=== PATIENT | female | born 1965 | race Caucasian/White ===

== ENCOUNTER 2021-03-16 15:00 | Emergency (ER) | payer MEDICARE, MEDICAID ==
[~2021-03-16] VITALS: Ht 165.1 cm; Wt 85.0 kg
[2021-03-16] MEDS ORDERED: MORPHINE SULFATE 4 MG/ML CPJ (NOT FOR IM USE) IV STA (15:31)
[2021-03-16] MEDS ORDERED: ONDANSETRON HCL 4MG/2ML INJ IV STA (15:31)
[2021-03-16] MEDS ORDERED: SODIUM CHLORIDE 0.9% 1,000 ML IV ONE (15:45)
[2021-03-16 16:57] LABS: BASOPHILS % 1.1 % (0.0-2.0); EOSINOPHILS % 4.1 % (0.0-5.0); HEMATOCRIT. 36.5 % (36.0-48.0); HEMOGLOBIN. 11.6 g/dL (12.0-16.0); MEAN CORPUSCULAR HEMOGLOBIN 24.2 pg (28.0-32.0); MEAN CORPUSCULAR VOLUME 76.3 fL (81.0-99.0); MEAN PLATELET VOLUME 9.8 fl (7.4-10.4); MONOCYTES % 6.9 % (2.0-8.0); NEUTROPHILS % 62.9 % (40.0-76.0); PLATELET 145 x1000/uL (130-400); RED BLOOD CELL COUNT 4.78 mill/uL (4.2-5.4); RED CELL DISTRIBUTION WIDTH 18.5 % (11.6-14.6)
[2021-03-16 17:05] LABS: CHLORIDE 109 mEq/L (98-107)
[2021-03-16 17:06] LABS: INR 1.1; PARTIAL THROMBOPLASTIN TIME 26.7 sec (23.4-31.0); PROTHROMBIN TIME 11.6 sec (9.6-11.0)
[2021-03-16 19:43] LABS: CLARITY URINE CLEAR (CLEAR); COLOR URINE YELLOW (YELLOW); KETONES URINE NEGATIVE (NEGATIVE); LEUKOCYTE ESTERASE URINE TRACE (NEGATIVE); NITRITE URINE POSITIVE (NEGATIVE); OCCULT BLOOD URINE NEGATIVE (NEGATIVE); PROTEIN URINE NEGATIVE (NEGATIVE); SPECIFIC GRAVITY URINE 1.037 (1.005-1.030)
[2021-03-16] MEDS ORDERED: CIPR500T5 MT (19:57)
[2021-03-16 20:00] VITALS: BP 128/78
== END 2021-03-16 20:24 | disposition home or self-care (01) ==
LOC: ER 15:00
DX: R10.84 Generalized abdominal pain (principal); N39.0 Urinary tract infection, site not specified; Z85.528 Personal history of other malignant neoplasm of kidney; Z90.5 Acquired absence of kidney; Z90.710 Acquired absence of both cervix and uterus; Z90.49 Acquired absence of other specified parts of digestive tract; Z86.19 Personal history of other infectious and parasitic diseases
CPT/HCPCS: 36415; 71045; 74176; 80053; 81003; 83690; 84484; 85025; 85610; 85730; 87077; 87086; 87186; 93005; 96361; 96374; 96375; 99285; J2270; J2405; J7030

== ENCOUNTER 2021-10-14 13:52 | Inpatient (IN) | payer MEDICARE, MEDICAID ==
[~2021-10-14] VITALS: Ht 167.6 cm; Wt 77.7 kg
[~2021-10-14 13:52] MED LIST: CIPR500T5 MT
[2021-10-14] MEDS ORDERED: SODIUM CHLORIDE 0.9% 1,000 ML IV ONE (14:30)
[2021-10-14] MEDS ORDERED: ONDANSETRON HCL 4MG/2ML INJ IV ONE (14:45)
[2021-10-14] MEDS ORDERED: MIDAZOLAM HCL 2 MG/2 ML VIAL IV ONE (14:45)
[2021-10-14 14:46] LABS: BASOPHILS % 0.9 % (0.0-2.0); EOSINOPHILS % 5.3 % (0.0-5.0); HEMOGLOBIN. 15.5 g/dL (12.0-16.0); LYMPHOCYTES % 34.6 % (20.0-50.0); MEAN CORPUSCULAR HEMOGLOBIN 33.9 pg (28.0-32.0); MEAN CORPUSCULAR VOLUME 98.2 fL (81.0-99.0); MEAN PLATELET VOLUME 10.4 fl (7.4-10.4); MONOCYTES % 10.5 % (2.0-8.0); NEUTROPHILS % 48.7 % (40.0-76.0); PLATELET 112 x1000/uL (130-400); RED BLOOD CELL COUNT 4.58 mill/uL (4.2-5.4)
[2021-10-14 14:52] LABS: CHLORIDE 107 mEq/L (98-107)
[2021-10-14 14:56] LABS: INR 1.2; PARTIAL THROMBOPLASTIN TIME 29.7 sec (23.4-31.0); PROTHROMBIN TIME 12.4 sec (9.6-11.0)
[2021-10-14 15:04] LABS: ETHANOL BLOOD < 10 mg/dL
[2021-10-14] MEDS ORDERED: LACTULOSE 20G/30ML UDC NG ONE (15:30)
[2021-10-14] MEDS ORDERED: LACTULOSE 300 ML in WATER FOR IRRIGATION,STERILE 700 ML IR ONE (16:00)
[2021-10-14 22:00] VITALS: BP_SYST 142; BP_DIAS 70; BP_DIAS 74
[2021-10-14] MEDS ORDERED: ONDANSETRON HCL 4MG/2ML INJ IV PRN (22:00)
[2021-10-14] MEDS ORDERED: CLONIDINE 0.1MG TABLET NG PRN (22:00)
[2021-10-14] MEDS ORDERED: DEXT 5%/0.45% NACL 1000ML 1,000 ML IV SCH (22:00)
[2021-10-14] MEDS ORDERED: DEXTROSE 50% WATER 50ML SYRINGE IV PRN (22:00)
[2021-10-14] MEDS ORDERED: ACETAMINOPHEN 650MG/20.3ML UDC GT PRN ×2 (22:00)
[2021-10-14] MEDS: LACTULOSE 20G/30ML UDC NG SCH (23:28)
[2021-10-14] MEDS: INSULIN GLARGINE 100 UNITS/ML SUBCUT SCH (23:30)
[2021-10-14] MEDS: BLOOD SUGAR DIAGNOSTIC STRIP TEST SCH (23:32)
[2021-10-15] VITALS (8 sets, daily range): BP systolic 123–156; BP diastolic 68–80
[2021-10-15] MEDS: LACTULOSE 20G/30ML UDC NG SCH ×2 (04:15→09:42)
[2021-10-15] MEDS: BLOOD SUGAR DIAGNOSTIC STRIP TEST SCH ×3 (05:28→21:00)
[2021-10-15] MEDS: INSULIN LISPRO 100 UNITS/ML SUBCUT SCH ×3 (05:32→23:48)
[2021-10-15 09:40] LABS: BASOPHILS % 0.7 % (0.0-2.0); HEMATOCRIT. 43.1 % (36.0-48.0); LYMPHOCYTES % 16.5 % (20.0-50.0); MEAN CORPUSCULAR HEMOGLOBIN 34.4 pg (28.0-32.0); MEAN CORPUSCULAR VOLUME 98.7 fL (81.0-99.0); MEAN PLATELET VOLUME 10.5 fl (7.4-10.4); MONOCYTES % 7.6 % (2.0-8.0); NEUTROPHILS % 74.2 % (40.0-76.0); PLATELET 107 x1000/uL (130-400); RED BLOOD CELL COUNT 4.37 mill/uL (4.2-5.4); RED CELL DISTRIBUTION WIDTH 15.2 % (11.6-14.6)
[2021-10-15] MEDS: PANTOPRAZOLE SODIUM 40 MG/VIAL IV SCH (09:42)
[2021-10-15] MEDS: INSULIN GLARGINE 100 UNITS/ML SUBCUT SCH ×2 (09:47→23:47)
[2021-10-15 10:24] LABS: CHLORIDE 113 mEq/L (98-107)
[2021-10-15 10:29] LABS: PHOSPHORUS 2.7 mg/dL (2.5-4.9)
[2021-10-15] MEDS ORDERED: BLOOD SUGAR DIAGNOSTIC STRIP TEST SCH (15:15)
[2021-10-15] MEDS ORDERED: INSULIN LISPRO 100 UNITS/ML SUBCUT SCH (17:30)
[2021-10-15] MEDS: LACTULOSE 20G/30ML UDC PO SCH ×2 (17:42→23:49)
[2021-10-16] VITALS (8 sets, daily range): BP systolic 125–157; BP diastolic 63–84
[2021-10-16] MEDS: LACTULOSE 20G/30ML UDC PO SCH ×2 (06:00→12:26)
[2021-10-16] MEDS: BLOOD SUGAR DIAGNOSTIC STRIP TEST SCH ×4 (07:30→21:22)
[2021-10-16] MEDS: INSULIN LISPRO 100 UNITS/ML SUBCUT SCH ×4 (08:00→21:24)
[2021-10-16] MEDS: PANTOPRAZOLE SODIUM 40 MG/VIAL IV SCH (08:38)
[2021-10-16] MEDS ORDERED: LACTULOSE 20G/30ML UDC PO SCH (12:45)
[2021-10-16] MEDS ORDERED: GABA-532 PO (12:50)
[2021-10-16] MEDS ORDERED: PARO10TA74 PO (12:50)
[2021-10-16] MEDS ORDERED: ONDA4TAB11 PO (12:50)
[2021-10-16] MEDS ORDERED: PANT40TA51 PO (12:50)
[2021-10-16] MEDS ORDERED: FURO40TA5 PO (12:50)
[2021-10-16] MEDS ORDERED: DAPA10TA PO (12:50)
[2021-10-16] MEDS ORDERED: SPIR100T5 PO (12:50)
[2021-10-16] MEDS ORDERED: FERR325T30 PO (12:50)
[2021-10-16] MEDS ORDERED: RIFA550T PO (12:50)
[2021-10-16] MEDS ORDERED: LEVO150T8 PO (12:50)
[2021-10-16] MEDS: DIPHENHYDRAMINE 50MG/ML VIAL IV PRN (18:43)
[2021-10-16] MEDS: INSULIN GLARGINE 100 UNITS/ML SUBCUT SCH (21:23)
[2021-10-17] VITALS: BP 122/53
[2021-10-17 04:00] VITALS: BP 115/70
[2021-10-17] MEDS: DIPHENHYDRAMINE 50MG/ML VIAL IV PRN (04:09)
[2021-10-17 08:00] VITALS: BP 126/48
[2021-10-17] MEDS: PANTOPRAZOLE SODIUM 40 MG/VIAL IV SCH (08:26)
[2021-10-17] MEDS: BLOOD SUGAR DIAGNOSTIC STRIP TEST SCH ×4 (08:26→20:54)
[2021-10-17] MEDS: INSULIN LISPRO 100 UNITS/ML SUBCUT SCH ×4 (08:42→20:56)
[2021-10-17 10:00] VITALS: BP 118/51
[2021-10-17] MEDS ORDERED: LACTULOSE 20G/30ML UDC PO SCH (11:00)
[2021-10-17] MEDS: LACTULOSE 20G/30ML UDC PO SCH ×3 (14:30→22:14)
[2021-10-17] MEDS ORDERED: DEXTROSE 50% WATER 50ML SYRINGE IV PRN (14:45)
[2021-10-17 20:00] VITALS: BP 131/66
[2021-10-17] MEDS: RIFAXIMIN 550 MG TABLET PO SCH (20:54)
[2021-10-17 22:00] VITALS: BP 137/73
[2021-10-17] MEDS ORDERED: INSULIN GLARGINE 100 UNITS/ML SUBCUT SCH (22:00)
[2021-10-18] VITALS (7 sets, daily range): BP systolic 105–135; BP diastolic 54–87
[2021-10-18] MEDS: LACTULOSE 20G/30ML UDC PO SCH ×5 (02:41→17:16)
[2021-10-18] MEDS ORDERED: LEVOTHYROXINE SODIUM 150MCG TABLET PO SCH (07:30)
[2021-10-18 07:31] LABS: HEMATOCRIT. 40.3 % (36.0-48.0); HEMOGLOBIN. 14.1 g/dL (12.0-16.0); MEAN CORPUSCULAR HEMOGLOBIN 34.9 pg (28.0-32.0); MEAN CORPUSCULAR VOLUME 99.9 fL (81.0-99.0); MONOCYTES % 10.1 % (2.0-8.0); NEUTROPHILS % 47.9 % (40.0-76.0); PLATELET 79 x1000/uL (130-400); RED BLOOD CELL COUNT 4.03 mill/uL (4.2-5.4); RED CELL DISTRIBUTION WIDTH 15.4 % (11.6-14.6)
[2021-10-18] MEDS: BLOOD SUGAR DIAGNOSTIC STRIP TEST SCH ×3 (07:35→17:15)
[2021-10-18] MEDS: INSULIN LISPRO 100 UNITS/ML SUBCUT SCH ×3 (07:36→17:16)
[2021-10-18 08:07] LABS: CHLORIDE 113 mEq/L (98-107)
[2021-10-18 08:38] LABS: PHOSPHORUS 2.4 mg/dL (2.5-4.9)
[2021-10-18] MEDS: RIFAXIMIN 550 MG TABLET PO SCH (08:39)
[2021-10-18] MEDS: PANTOPRAZOLE SODIUM 40 MG/VIAL IV SCH (08:39)
[2021-10-18] MEDS ORDERED: POTASSIUM CHLORIDE 20MEQ TABLET SR PO NR (10:15)
[2021-10-18] MEDS ORDERED: LACT10SO30 MT (14:48)
== END 2021-10-18 21:29 | disposition home or self-care (01) | DRG 443 ==
LOC: ER 13:52 → 5EST 19:02 → EDBEDREQTM 19:10 → EDBEDREQ 19:10 → ENRESERV 20:08 → ER 21:30
PROVIDERS: ADMIT Internal Medicine; ATTEND Internal Medicine
DX: K72.00 Acute and subacute hepatic failure without coma (principal); E03.9 Hypothyroidism, unspecified; E11.9 Type 2 diabetes mellitus without complications; K74.60 Unspecified cirrhosis of liver; Z90.49 Acquired absence of other specified parts of digestive tract; Z90.710 Acquired absence of both cervix and uterus
CPT/HCPCS: 36415; 71045; 80048; 80053; 80320; 82140; 82962; 83036; 83735; 83880; 84100; 84484; 85025; 86850; 86870; 86900; 93005; 99285; C9113; J1200; J1815; J2250; J2405; J7030; A4315; G0480

== ENCOUNTER 2021-10-29 11:08 | Inpatient (IN) | payer MEDICARE, MEDICAID ==
[~2021-10-29] VITALS: Ht 165.1 cm; Wt 77.1 kg
[~2021-10-29 11:08] MED LIST changes: +DAPA10TA PO; +FERR325T30 PO; +FURO40TA5 PO; +GABA-532 PO; +LACT10SO30 MT; +LEVO150T8 PO; +ONDA4TAB11 PO; +PANT40TA51 PO; +PARO10TA74 PO; +RIFA550T PO; +SPIR100T5 PO
[2021-10-29 14:40] LABS: INR 1.2; PROTHROMBIN TIME 12.3 sec (9.6-11.0)
[2021-10-29] MEDS ORDERED: SODIUM CHLORIDE 0.9% 1,000 ML IV ONE (14:45)
[2021-10-29 14:49] LABS: EOSINOPHILS % 2.2 % (0.0-5.0); HEMATOCRIT. 52.5 % (36.0-48.0); HEMOGLOBIN. 17.9 g/dL (12.0-16.0); LYMPHOCYTES % 27.3 % (20.0-50.0); MEAN CORPUSCULAR HEMOGLOBIN 35.2 pg (28.0-32.0); MEAN CORPUSCULAR VOLUME 103.3 fL (81.0-99.0); MEAN PLATELET VOLUME 10.3 fl (7.4-10.4); MONOCYTES % 11.3 % (2.0-8.0); NEUTROPHILS % 58.2 % (40.0-76.0); PLATELET 120 x1000/uL (130-400); RED BLOOD CELL COUNT 5.09 mill/uL (4.2-5.4); RED CELL DISTRIBUTION WIDTH 17.3 % (11.6-14.6)
[2021-10-29 14:51] LABS: CHLORIDE 103 mEq/L (98-107)
[2021-10-29 17:34] LABS: CLARITY URINE CLOUDY (CLEAR); COLOR URINE YELLOW (YELLOW); KETONES URINE NEGATIVE (NEGATIVE); LEUKOCYTE ESTERASE URINE 2+ (NEGATIVE); NITRITE URINE NEGATIVE (NEGATIVE); OCCULT BLOOD URINE TRACE (NEGATIVE); PROTEIN URINE NEGATIVE (NEGATIVE); SPECIFIC GRAVITY URINE 1.018 (1.005-1.030)
[2021-10-29 17:57] LABS: *AMPHETAMINES SCREEN URINE PRESUMTIVE POSITIVE (NEGATIVE); *BARBITURATES SCREEN URINE NEGATIVE (NEGATIVE); *BENZODIAZEPINES SCREEN URINE NEGATIVE (NEGATIVE); *COCAINE SCREEN URINE NEGATIVE (NEGATIVE); CANNABINOID URINE SCREEN NEGATIVE (NEGATIVE); METHADONE URINE SCREEN NEGATIVE (NEGATIVE); OPIATES URINE SCREEN NEGATIVE (NEGATIVE); PHENCYCLIDINE URINE SCREEN NEGATIVE (NEGATIVE)
[2021-10-29] MEDS ORDERED: DEXTROSE 50% WATER 50ML SYRINGE IV PRN (20:30)
[2021-10-29] MEDS ORDERED: ONDANSETRON HCL 4MG/2ML INJ IV PRN (20:30)
[2021-10-29] MEDS ORDERED: ACETAMINOPHEN 325MG TABLET PO PRN ×2 (20:30)
[2021-10-29] MEDS: BLOOD SUGAR DIAGNOSTIC STRIP TEST SCH (21:00)
[2021-10-29 21:50] VITALS: BP 125/74
[2021-10-29] MEDS ORDERED: INSULIN GLARGINE 100 UNITS/ML SUBCUT SCH (22:00)
[2021-10-29] MEDS: SODIUM CHLORIDE 0.9% 1,000 ML IV SCH (23:04)
[2021-10-29] MEDS: PANTOPRAZOLE 40MG DR TABLET PO SCH (23:04)
[2021-10-29] MEDS: LACTULOSE 20G/30ML UDC PO SCH (23:05)
[2021-10-29] MEDS: INSULIN LISPRO 100 UNITS/ML SUBCUT SCH (23:09)
[2021-10-29] MEDS ORDERED: MVI, ADULT NO.1 10 ML, FOLIC ACID 1 MG, THIAMINE HCL 100 MG in SODIUM CHLORIDE 0.9% 1,0... IV SCH ×4 (23:30)
[2021-10-30] VITALS: BP 122/77
[2021-10-30] MEDS: DIPHENHYDRAMINE 50MG/ML VIAL IV PRN ×3 (00:20→22:11)
[2021-10-30 04:00] VITALS: BP 123/63
[2021-10-30 05:59] LABS: CHLORIDE 109 mEq/L (98-107)
[2021-10-30 06:15] LABS: PHOSPHORUS 3.7 mg/dL (2.5-4.9)
[2021-10-30 06:17] LABS: BASOPHILS % 0.9 % (0.0-2.0); EOSINOPHILS % 4.2 % (0.0-5.0); HEMATOCRIT. 39.8 % (36.0-48.0); HEMOGLOBIN. 13.7 g/dL (12.0-16.0); LYMPHOCYTES % 40.7 % (20.0-50.0); MEAN CORPUSCULAR VOLUME 102.1 fL (81.0-99.0); MEAN PLATELET VOLUME 10.4 fl (7.4-10.4); MONOCYTES % 11.9 % (2.0-8.0); NEUTROPHILS % 42.3 % (40.0-76.0); PLATELET 79 x1000/uL (130-400); RED CELL DISTRIBUTION WIDTH 16.6 % (11.6-14.6)
[2021-10-30] MEDS: LACTULOSE 20G/30ML UDC PO SCH ×3 (06:24→22:10)
[2021-10-30] MEDS: PANTOPRAZOLE 40MG DR TABLET PO SCH ×2 (06:24→22:10)
[2021-10-30] MEDS: LEVOTHYROXINE SODIUM 150MCG TABLET PO SCH (06:25)
[2021-10-30] MEDS: BLOOD SUGAR DIAGNOSTIC STRIP TEST SCH ×4 (06:25→21:00)
[2021-10-30] MEDS: INSULIN LISPRO 100 UNITS/ML SUBCUT SCH ×4 (06:58→22:12)
[2021-10-30 08:00] VITALS: BP 116/65
[2021-10-30] MEDS: RIFAXIMIN 550 MG TABLET PO SCH ×2 (08:47→22:10)
[2021-10-30 11:53] VITALS: BP 121/51
[2021-10-30 16:00] VITALS: BP 110/55
[2021-10-30] MEDS: SODIUM CHLORIDE 0.9% 1,000 ML IV SCH (16:30)
[2021-10-30 18:13] LABS: *AMPHETAMINES SCREEN URINE PRESUMTIVE POSITIVE (NEGATIVE); *BARBITURATES SCREEN URINE NEGATIVE (NEGATIVE); *BENZODIAZEPINES SCREEN URINE NEGATIVE (NEGATIVE); *COCAINE SCREEN URINE NEGATIVE (NEGATIVE); CANNABINOID URINE SCREEN NEGATIVE (NEGATIVE); METHADONE URINE SCREEN NEGATIVE (NEGATIVE); OPIATES URINE SCREEN NEGATIVE (NEGATIVE); PHENCYCLIDINE URINE SCREEN NEGATIVE (NEGATIVE)
[2021-10-30 20:00] VITALS: BP 127/70
[2021-10-30] MEDS: INSULIN GLARGINE 100 UNITS/ML SUBCUT SCH (22:13)
[2021-10-31] VITALS: BP 141/77
[2021-10-31 04:00] VITALS: BP 147/75
[2021-10-31] MEDS: DIPHENHYDRAMINE 50MG/ML VIAL IV PRN ×2 (04:03→21:22)
[2021-10-31] MEDS: LACTULOSE 20G/30ML UDC PO SCH ×3 (06:13→18:42)
[2021-10-31] MEDS: PANTOPRAZOLE 40MG DR TABLET PO SCH ×2 (06:13→21:22)
[2021-10-31] MEDS: BLOOD SUGAR DIAGNOSTIC STRIP TEST SCH ×4 (06:13→21:23)
[2021-10-31] MEDS: LEVOTHYROXINE SODIUM 150MCG TABLET PO SCH (06:13)
[2021-10-31 08:00] VITALS: BP 140/71
[2021-10-31] MEDS: RIFAXIMIN 550 MG TABLET PO SCH ×2 (09:40→21:22)
[2021-10-31] MEDS: INSULIN LISPRO 100 UNITS/ML SUBCUT SCH ×4 (09:41→21:24)
[2021-10-31] MEDS: LEVOFLOXACIN 500MG TABLET PO SCH (11:57)
[2021-10-31 12:00] VITALS: BP 131/60
[2021-10-31 16:00] VITALS: BP 159/88
[2021-10-31] MEDS: SODIUM CHLORIDE 0.9% 1,000 ML IV SCH (18:43)
[2021-10-31 20:00] VITALS: BP 120/58
[2021-10-31] MEDS: INSULIN GLARGINE 100 UNITS/ML SUBCUT SCH (21:24)
[2021-11-01] VITALS: BP 114/55
[2021-11-01] MEDS ORDERED: HYDROCODONE/ACETAMINOPHEN 5/325MG TABLET PO PRN (00:30)
[2021-11-01] MEDS ORDERED: NALOXONE HCL 0.4MG/ML VIAL IV PRN (00:30)
[2021-11-01] MEDS: DIPHENHYDRAMINE 50MG/ML VIAL IV PRN ×2 (00:35→10:26)
[2021-11-01] MEDS: LACTULOSE 20G/30ML UDC PO SCH ×3 (00:35→13:08)
[2021-11-01 04:00] VITALS: BP 127/66
[2021-11-01] MEDS: PANTOPRAZOLE 40MG DR TABLET PO SCH (06:39)
[2021-11-01] MEDS: BLOOD SUGAR DIAGNOSTIC STRIP TEST SCH ×3 (06:39→16:28)
[2021-11-01] MEDS: LEVOTHYROXINE SODIUM 150MCG TABLET PO SCH (06:39)
[2021-11-01 08:26] VITALS: BP 126/62
[2021-11-01] MEDS: RIFAXIMIN 550 MG TABLET PO SCH (08:28)
[2021-11-01] MEDS: SODIUM CHLORIDE 0.9% 1,000 ML IV SCH (08:29)
[2021-11-01] MEDS: INSULIN LISPRO 100 UNITS/ML SUBCUT SCH ×3 (08:33→16:47)
[2021-11-01] MEDS: LEVOFLOXACIN 500MG TABLET PO SCH (10:26)
[2021-11-01 12:17] VITALS: BP 133/73
[2021-11-01 14:43] VITALS: BP 133/73
[2021-11-01 16:30] VITALS: BP 121/79
== END 2021-11-01 17:29 | disposition home or self-care (01) | DRG 682 ==
LOC: ER 11:21 → EDBEDREQ 15:48 → 6WST 16:23 → EDBEDREQ 16:32 → ENRESERV 20:33
PROVIDERS: ADMIT Internal Medicine; ATTEND Internal Medicine
DX: N17.9 Acute kidney failure, unspecified (principal); G92.8 Other toxic encephalopathy; N39.0 Urinary tract infection, site not specified; E86.0 Dehydration; K72.90 Hepatic failure, unspecified without coma; E11.65 Type 2 diabetes mellitus with hyperglycemia; K74.60 Unspecified cirrhosis of liver; F15.10 Other stimulant abuse, uncomplicated; Z59.00 Homelessness unspecified; Z91.14 Patient's other noncompliance with medication regimen
CPT/HCPCS: 36415; 71045; 80053; 80305; 80320; 81003; 82140; 82962; 83735; 84100; 84443; 84484; 85025; 87077; 87186; 99285; J1200; J1815; J3411; J3490; J7030; G0480